=== PATIENT | female | born 1965 | race Hispanic/Latino ===

== ENCOUNTER 2017-08-02 08:24 | Day surgery (SDC) | payer OTHER ==
[2017-08-02 09:07] VITALS: BMI 29.7
[2017-08-02] MEDS ORDERED: Lactated Ringer's 1,000 ML IV ONE ×2 (09:40→10:10)
[2017-08-02] MEDS ORDERED: Propofol 10 mg/ml Inj (20 ML) ONE (09:46)
[2017-08-02 11:17] VITALS: O2SAT 100
[2017-08-02 12:44] VITALS: BP 119/69; PULSE 71; RESP 19; TEMP 97.3
== END 2017-08-02 11:30 | disposition home or self-care (01) ==
LOC: C.ENDO 08:24
PROVIDERS: ATTEND Internal Medicine
DX: K52.9 Noninfective gastroenteritis and colitis, unspecified (principal); D12.4 Benign neoplasm of descending colon; K57.30 Diverticulosis of large intestine without perforation or abscess without bleeding
CPT/HCPCS: 45380; 88305; 88313; 88342; J2704; J7120